=== PATIENT | male | born 1940 | race Caucasian/White ===

== ENCOUNTER 2018-01-26 07:19 | Day surgery (SDC) | payer MEDICARE ==
[~2018-01-26 07:19] MED LIST: Acetaminophen TAB* 325 MG PO PRN; Buffered Lidocaine 0.9% SYRIN* 5 ML/SYR SYRINGE INTRADERM ONE
[2018-01-26] MEDS ORDERED: Midazolam* 1 MG/ML 2 ML VIAL (2 MG) ONE (07:30)
[2018-01-26] MEDS ORDERED: fentaNYL* 50 MCG/ML 2 ML VIAL (100 MCG VIAL) ONE (07:30)
[2018-01-26] MEDS ORDERED: Cyclopentolate 1% OPTH.SOL* 2 ML BTL ONE (08:23)
[2018-01-26] MEDS ORDERED: Tropicamide 1% OPTH.SOL* BTL ONE (08:23)
[2018-01-26] MEDS ORDERED: Lidocaine 1%* 5 ML VIAL ONE (08:23)
[2018-01-26] MEDS ORDERED: Povidone Iodine 5% OPTH* 30 ML BTL ONE (08:23)
[2018-01-26] MEDS ORDERED: acetaZOLAMIDE TAB* 250 MG ONE (08:23)
[2018-01-26] MEDS ORDERED: Tetracaine 0.5% OPTH.SOL 4 ML* 1 DROP BTL ONE (08:23)
[2018-01-26] MEDS ORDERED: Phenylephrine 2.5% OPTH.SOL* 2 ML BTL ONE (08:23)
[2018-01-26] MEDS ORDERED: Neomycin/Polymy/Dex OPHTH.OIN* 3.5 GM ONE (08:23)
[2018-01-26] MEDS ORDERED: Ketorolac 0.5% OPHTH (NF) 0.5 % 5 ML BTL ONE (08:23)
[2018-01-26 09:16] VITALS: BP 136/89
--- NOTE | 2018-01-26 14:13 | OP ---
DATE OF OPERATION: 01/26/18 - [facility] DATE OF : 44 SURGEON: Sergio Brody MD ANESTHESIA: Monitored anesthesia care. PREOPERATIVE DIAGNOSIS: Cataract, right eye. POSTOPERATIVE DIAGNOSIS: Cataract, right eye. OPERATIVE PROCEDURE: Extracapsular cataract extraction of the right eye with intraocular lens implant. IMPLANT: SN60WF 11.0 diopter lens to the right eye. COMPLICATIONS: None. DESCRIPTION OF PROCEDURE: The patient was given phenylephrine 2.5 % and cyclopentolate 1% eye drops to the operative eye in the preoperative area. The patient was taken to the operating room where a time-out was taken to identify the correct patient, site, and side of surgery. The patient's right eye was prepped and draped in the usual sterile fashion with 5% Betadine. A second time- out was taken to verify the correct patient, side, and site of surgery, as well as the correct lens implant. A lid speculum was placed to the right eye. A 1mm paracentesis blade was used to make a clear corneal incision. Preservative-free 1% lidocaine was injected into the anterior chamber. DisCoVisc was then injected into the anterior chamber. A 2.75 mm keratome blade was used to make a triplanar incision. A cystotome initiated a capsulorrhexis, which was completed with Utrata forceps in a continuous and curvilinear manner. Hydrodissection of the lens was performed with BSS on a cannula. The lens could be spun in a capsular bag. The phacoemulsification handpiece was used with a divide-and- conquer technique to remove the nucleus. The I/A handpiece then removed the residual cortical lens material. DisCoVisc was injected to inflate the capsular bag. The planned SN60WF 11.0 diopter lens was injected into the capsular bag. The residual DisCoVisc was removed from the eye with the I/A handpiece. The corneal incisions were hydrated and no leaks occurred at physiologic pressure around 20 mmHg per palpation. The lid speculum was removed and drapes were removed. Maxitrol ointment was placed to the surface of the operative eye. An adhesive patch and shield was then placed on the operative eye. The patient was taken to the postoperative area in stable condition. [id number]/[facility] #: [id number] [facility]
--- NOTE | 2018-01-29 11:46 | PN ---
Progress Note - Progress Note Date of Service: 01/29/18 Note: Patient's called [facility]. Since the surgery, the patient has been more confused than usual. He has a history of Parkinson's and has been intermittently, confused and hallucinatory at times, but patient's says that this has been worse since the surgery. I reviewed the anesthesia record: he received Versed 1 mg, Fentanyl 50 mcg, and Propofol 15 mg total for the case. I explained to her that these medications are metabolized very rapidly and should be gone from the patient's system by 24 hours. I suggested that she contact the neurologist who regulates the patient's Parkinson', medication, for possible adjustment of medications. I also suggested that she contact Dr. Brody's office if she is concerned about whether to proceed with surgery on the patient's second eye.
== END 2018-01-26 08:40 | disposition home or self-care (01) ==
LOC: OREAST 07:19
PROVIDERS: ATTEND Student in an Organized Health Care Education/Training Program
DX: H25.11 Age-related nuclear cataract, right eye (principal); H43.813 Vitreous degeneration, bilateral; I10 Essential (primary) hypertension; K21.9 Gastro-esophageal reflux disease without esophagitis; K58.9 Irritable bowel syndrome, unspecified; G20 Parkinson's disease; J30.89 Other allergic rhinitis; N30.10 Interstitial cystitis (chronic) without hematuria
CPT/HCPCS: A9270-GY; J2250; J3010; V2632

== ENCOUNTER 2018-02-18 09:53 | Day surgery (SDC) | payer MEDICARE ==
[2018-02-18] MEDS ORDERED: Midazolam* 1 MG/ML 2 ML VIAL (2 MG) ONE (10:14)
[2018-02-18] MEDS ORDERED: Neomycin/Polymy/Dex OPHTH.OIN* 3.5 GM ONE (10:58)
[2018-02-18] MEDS ORDERED: Povidone Iodine 5% OPTH* 30 ML BTL ONE (10:58)
[2018-02-18] MEDS ORDERED: Lidocaine 1%* 5 ML VIAL ONE (10:58)
[2018-02-18] MEDS ORDERED: Cyclopentolate 1% OPTH.SOL* 2 ML BTL ONE (10:58)
[2018-02-18] MEDS ORDERED: Phenylephrine 2.5% OPTH.SOL* 2 ML BTL ONE (10:58)
[2018-02-18] MEDS ORDERED: Tetracaine 0.5% OPTH.SOL 4 ML* 1 DROP BTL ONE (10:58)
[2018-02-18] MEDS ORDERED: Ketorolac 0.5% OPHTH (NF) 0.5 % 5 ML BTL ONE (10:58)
[2018-02-18] MEDS ORDERED: acetaZOLAMIDE TAB* 250 MG ONE (10:58)
[2018-02-18] MEDS ORDERED: Tropicamide 1% OPTH.SOL* BTL ONE (10:58)
[2018-02-18 11:42] VITALS: BP 122/85
--- NOTE | 2018-02-26 09:08 | OP ---
DATE OF OPERATION: 02/18/18 [facility] DATE OF : 44 SURGEON: Sergio Brody MD ANESTHESIA: Monitored anesthesia care. PREOPERATIVE DIAGNOSIS: Cataract, left eye. POSTOPERATIVE DIAGNOSIS: Cataract, left eye. OPERATIVE PROCEDURE: Extracapsular cataract extraction of the left eye with intraocular lens implant. IMPLANTS: SN60WF 10.5 diopter lens to the left eye. COMPLICATIONS: None. DESCRIPTION OF PROCEDURE: The patient was given phenylephrine 2.5% and cyclopentolate 1% eye drops to the operative eye in the preoperative area. The patient was taken to the operating room where a time-out was taken to identify the correct patient, site, and side of surgery. The patient's left eye was prepped and draped in the usual sterile fashion with 5% Betadine. A second time- out was taken to verify the correct patient, side, and site of surgery, as well as the correct lens implant. A lid speculum was placed to the left eye. A 1-mm paracentesis blade was used to make a clear corneal incision. Preservative-free 1% lidocaine was injected into the anterior chamber. DisCoVisc was then injected into the anterior chamber. A 2.75 mm keratome blade was used to make a triplanar incision. A cystotome initiated a capsulorrhexis, which was completed with Utrata forceps in a continuous and curvilinear manner. Hydrodissection of the lens was performed with BSS on a cannula. The lens could be spun in a capsular bag. The phacoemulsification handpiece was used with a divide-and- conquer technique to remove the nucleus. The I/A handpiece then removed the residual cortical lens material. DisCoVisc was injected to inflate the capsular bag. The planned SN60WF 10.5 diopter lens was injected into the capsular bag. The residual DisCoVisc was removed from the eye with the I/A handpiece. The corneal incisions were hydrated and no leaks occurred at physiologic pressure around 20 mmHg per palpation. The lid speculum was removed and drapes were removed. Maxitrol ointment was placed to the surface of the operative eye. An adhesive patch and shield was then placed on the operative eye. The patient was taken to the postoperative area in stable condition. [id number]/[facility] #: [id number] [facility]
== END 2018-02-18 11:54 | disposition home or self-care (01) ==
LOC: OREAST 09:53
PROVIDERS: ATTEND Student in an Organized Health Care Education/Training Program
DX: H25.12 Age-related nuclear cataract, left eye (principal); H43.813 Vitreous degeneration, bilateral; G20 Parkinson's disease; K21.9 Gastro-esophageal reflux disease without esophagitis; N40.0 Benign prostatic hyperplasia without lower urinary tract symptoms; J30.2 Other seasonal allergic rhinitis
CPT/HCPCS: A9270-GY; J2250; V2632

== ENCOUNTER 2018-06-25 14:15 | Emergency (ER) | payer MEDICARE ==
[2018-06-25 14:54] VITALS: BP 121/74
--- NOTE | 2018-06-25 15:35 | UC ---
Eye Complaint HPI - HPI Summary HPI Summary: Patient fell down his basement stairs around 1330 this afternoon. he landed on his back and buttocks, presents with a large area of edema under the left eye. thinks he may have hit it on the railing on the way down, but is not sure. no other area of pain noted. he is walking without difficulty. does not complain of back pain or any numbness ore tingling. he denies any headache at this time. - History of Current Complaint Chief Complaint: UCLaceration Stated Complaint: S/P FALL-FACIAL PAIN Time Seen by Provider: 06/25/18 15:20 Hx Obtained From: Patient Onset/Duration: Sudden Onset, Lasting Hours Timing: Seconds Severity Initially: Moderate Severity Currently: Moderate Pain Intensity: 5 Location of Injury: Eye Lid (lower), Periorbital Aggravating Factor(s): Nothing - Allergies/Home Medications Allergies/Adverse Reactions: Allergies Allergy/AdvReac Type Severity Reaction Status Date / Time No Known Allergies Allergy Verified 06/25/18 14:44 Home Medications: Home Medications Amitriptyline TAB* [Elavil TAB*] 25 mg PO BEDTIME 06/25/18 [History Confirmed ] raNITIdine HCl [Ranitidine HCl] 75 mg PO DAILY 06/25/18 [History Confirmed 06/25] PMH/Surg Hx/FS Hx/Imm Hx Previously Healthy: No - parkingsons Neurological History: Other - parkingsons - Surgical History Surgical History: Yes Surgery Procedure, Year, and Place: umbilical hernia repair with mesh- many years ago - Family History Known Family History: Positive: Hypertension - Social History Alcohol Use: None Substance Use Type: None Smoking Status (MU): Never Smoked Tobacco Review of Systems All Other Systems Reviewed And Are Negative: Yes Constitutional: Positive: Negative Skin: Positive: Other - skin tear, bruising under right eye Eyes: Positive: Negative ENT: Positive: Negative Respiratory: Positive: Negative Cardiovascular: Positive: Negative Gastrointestinal: Positive: Negative Genitourinary: Positive: Negative Motor: Positive: Negative Neurovascular: Positive: Negative Musculoskeletal: Positive: Negative Neurological: Positive: Negative Psychological: Positive: Negative Is Patient Immunocompromised?: No Physical Exam Triage Information Reviewed: Yes Appearance: Well-Appearing, Well-Nourished, Pain Distress Vital Signs: Initial Vital Signs Temp 97.6 F 06/25/18 14:48 Pulse 74 06/25/18 14:48 Resp 20 06/25/18 14:48 BP 121/74 06/25/18 14:48 Pulse Ox 98 06/25/18 14:48 Vital Signs Reviewed: Yes Eye Exam: Normal Eyes: Positive: Other: - PERRLA, EOMI, no hyphema noted. no damage to the eye itself ENT: Positive: Hearing grossly normal, Pharynx normal, TMs normal, Other - large amount of edema under the left eye. small skin tear noted, brusing under eye and along the zygomatic arch present. Dental Exam: Normal Neck exam: Normal Respiratory Exam: Normal Respiratory: Positive: Chest non-tender, Lungs clear, Normal breath sounds Cardiovascular Exam: Normal Cardiovascular: Positive: RRR, No Murmur, Pulses Normal Abdominal Exam: Normal Abdomen Description: Positive: Nontender, No Organomegaly, Soft Bowel Sounds: Positive: Present Musculoskeletal Exam: Normal Musculoskeletal: Positive: Strength Intact, ROM Intact, No Edema, Other: - no neck pain Neurological: Positive: Alert, Other: - he is able to answer my questions correctly. he does have a shuffled gate at baseline. moving all extremities, able to touch all fingers to thumb. Psychological Exam: Normal Skin: Positive: Other - skin tear under rleft eye Eye Complaint Course/Dx - Course Course Of Treatment: hx obtained, exam performed ,meds reviewed, CT of face and brain obtained, no fracture noted no bleeding in the brain noted.skin tear cleansed. - Differential Dx/Diagnosis Differential Diagnosis/HQI/PQRI: Keratitis, Periorbital Cellulitis, Orbital Cellulitis, Uveitis, Other - zygomatic arch fracture Provider Diagnosis: Fall (on) (from) other stairs and steps, initial encounter, Facial contusion, Skin tear Discharge - Sign-Out/Discharge Documenting (check all that apply): Patient Departure All imaging exams completed and their final reports reviewed: No Studies - Discharge Plan Condition: Stable Disposition: HOME Patient Education Materials: Facial Contusion (ED) Referrals: Mike Brasher RN [Primary Care Provider] - Additional Instructions: 1. your CT was negatvie for any fracture to the eye area 2. Your Ct was also negative for any brain bleeding. 3. YOu will probably feel very sore tomorrow, expect that, upon exam you do not appear to be in pain and are moving well. 4. ice to the face area as needed for swelling 5. If you develop any increase eye pain, dizzyness, lightheadedness, please follow up. - Billing Disposition and Condition Condition: STABLE Disposition: Home - Attestation Statements Provider Attestation: Because the patient is A&Ox3, has no focal neurologic findings, no midline c- spine tenderness, no evidence of intoxication and no painful distracting injuries there is no need to obtain radiographic studies to evaluate the C- spinie.
== END 2018-06-25 16:14 | disposition home or self-care (01) ==
LOC: UCCORT 14:15
DX: S01.112A Laceration without foreign body of left eyelid and periocular area, initial encounter (principal); S00.83XA Contusion of other part of head, initial encounter; G20 Parkinson's disease; W10.8XXA Fall (on) (from) other stairs and steps, initial encounter; Y92.9 Unspecified place or not applicable
CPT/HCPCS: 70450; 70480; 99212; G0463